=== PATIENT | male | born 1940 | race African-American/Black ===

== ENCOUNTER → 2017-01-09 | Outpatient (CLI) | payer OTHER ==
[2017-01-09 16:14] LABS: CREATININE 1.3 mg/dL (0.7-1.3)
== END ==
LOC: CAT 15:45
PROVIDERS: Internal Medicine Pulmonary Disease
DX: R63.4 Abnormal weight loss (principal); R05 Cough

== ENCOUNTER → 2017-01-30 | Outpatient (CLI) | payer OTHER ==
[~2017-01-30] VITALS: Ht 175.3 cm; Wt 74.8 kg
[~2017-01-30] MED LIST: ACIDOPHILUS100 M1 PO; FLAX OIL1000 MG PO; GINKGO BILOBA500 MG PO; LEFLUNOMIDE20 MG PO; MULTIVITAMINS1 EAC7 PO; PREDNISONE 2.52.5 MG PO; VITAMINC500 PO
--- NOTE | ~2017-01-30 | P ---
[facility] [place] [address] PROCEDURE REPORT Name: MARIELY HOGUE Room #: REG [facility]#: [id number] Admission: 01/30/17 Attend Phys: Truman Mccoy MD Discharge: Date of : 38 Report #: [id number] THIS REPORT FOR: //name// CC: Jesus Joaquin MD OUTPATIENT UPPER ENDOSCOPY REPORT BRIEF HISTORY: The patient is a 76-year-old male ongoing evaluation by Dr. Joaquin for cough and weight loss. He had a recent CT of chest, which revealed dilation of the biliary tree with acute tract the gallbladder without obvious stones, radiology suggestive that he may have a nonopacified stone in the bile duct or possibly ampullary tumor. 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 He has also had a cough, but denies typical reflux symptoms. 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 POSTOPERATIVE DIAGNOSIS: Moderate diffuse gastritis. MEDICATIONS: Deep sedation with propofol per anesthesia. SPECIMEN: Biopsies of gastritis for H. pylori. ESTIMATED BLOOD LOSS: 3 mL. PROCEDURE: EGD with biopsy. FINDINGS: Prior to propofol sedation, procedure of upper endoscopy discussed with the patient as well as potential risks and its complications. He indicates he understands and desires to proceed. DESCRIPTION OF PROCEDURE: With the patient in left lateral decubitus position, the Indexi video endoscope was inserted in the cervical esophagus under direct vision without difficulty. Examination of this organ through its entire length revealed normal esophageal mucosa down the squamocolumnar junction. The squamocolumnar junction was well seen. There is no evidence of esophagitis or Vargas esophagus. In addition, a significant hiatus hernia was not seen. Scope was advanced in the stomach, which was examined on end view as well as retroflexed views. There is a moderate diffuse erythematous gastritis. No ulcers, erosions or bleeding lesions were seen. No mass lesions were seen. Upon retroflexion, no mass lesions or hiatus hernia was seen. Examination multiple biopsies were obtained to evaluate for the gastritis. The pylorus, duodenal bulb and postbulbar sweep were inspected. I was able to well visualize the duodenal papilla and also was able to see the minor papilla. Both [address] [address] PROCEDURE REPORT Name: MARIELY HOGUE Room #: REG [facility].#: [id number] Admission: 01/30/17 Attend Phys: Truman Mccoy MD Discharge: Date of : 39 Report #: [id number] structures were completely normal. No mass lesions were seen in the duodenum. At that point, the scope was slowly withdrawn and careful circumferential views confirmed the above findings. The patient tolerated the procedure well. CONDITION OF THE PATIENT UPON DISCHARGE: Following procedure, the patient drowsy, aroused, conversant and was then prepared for colonoscopy. INSTRUCTIONS TO THE PATIENT AND FAMILY AT THE TIME OF DISCHARGE: I do not see any mass lesions in the duodenum that would result in biliary ductal obstruction. Also, I do not see endoscopic evidence of esophagitis to explain his chronic cough and weight loss. Depending on pulmonary workup, could consider possibly of nonerosive reflux disease contributing to cough. In that case, trial of PPI may be helpful, but would defer to Dr. Joaquin following a full pulmonary evaluation. Also discussed with the patient that we did not find the ampullary lesion, consider MRCP for further evaluation of biliary tree. We will obtain LFTs in the office. We will proceed with colonoscopy at this time. <ELECTRONICALLY SIGNED> By: Truman Mccoy MD 02/04/17 1742 0749 1051 Truman Mccoy MD /nt
--- NOTE | ~2017-01-30 | S ---
[facility] [place] [address] SURGICAL PATH RPT PROCEDURE Name: MARIELY HOGUE Room #: REG [facility].#: [id number] Admission: 01/30/17 Date of : 38 Discharge: Report #: [id number] Path Case #: [id number] PATHOLOGY REPORT COLLECTION DATE: 01/30/2017 RECEIVED DATE: 01/31/2017 SUBMITTING PHYS: Dr. Truman Mccoy OTHER PHYS: Dr. Jesus Patel SPECIMEN(S) RECEIVED: A.Random gastric bx B.Proximal transverse colon polyp x 2 C.Mid transverse colon polyp * * * * * * * * * * * * FINAL DIAGNOSIS: A. Stomach, random biopsy: - Chronic superficial gastritis, moderate, with focal acute activity and focal intestinal metaplasia. - Micro-organisms morphologically consistent with Helicobacter pylori present on immunoperoxidase stain. B. Colon, proximal transverse, biopsy: - Adenomatous polyps, four fragments. C. Colon, mid transverse, biopsy: - Adenomatous polyps, two fragments. PATHOLOGIST: Jana Hull M.D. REPORT ELECTRONICALLY SIGNED BY: Jana Hull M.D. DATE/TIME: 02/03/2017 12:29 * * * * * * * * * * * * GROSS PATHOLOGY: A. Received in formalin labeled "Mariely Hogue, random gastric BX," are 5 segments of hudson soft tissue measuring 1.6 x 0.2 x 0.2 cm in aggregate dimensions and ranging from 0.1 to 0.6 cm in maximum dimension. The specimen is submitted entirely in cassette A1. B. Received in formalin labeled "Mariely Hogue, proximal transverse colon polyp," are 4 segments of hudson soft tissue measuring 1.4 x 0.2 x 0.2 cm in aggregate dimensions and ranging from 0.2 to 0.4 cm in maximum dimension. The specimen is submitted entirely in cassette B1. C. Received in formalin labeled "Mariely Hogue, mid transverse colon polyp," are 2 segments of hudson soft tissue measuring 0.5 x 0.2 x 0.2 cm in aggregate dimensions and ranging from 0.2 to 0.3 cm in maximum dimension. The specimen is submitted entirely in cassette C1. ([facility]; 01/31/2017) [address] [place] [address] SURGICAL PATH RPT PROCEDURE Name: MARIELY HOGUE Room #: [facility].#: [id number] Admission: 01/30/17 Date of : 39 Discharge: Report #: [id number] Path Case #: [id number] CLINICAL HISTORY: Change in bowel habits INITIAL CPT CODE(S): A; 61454, 25114 B; 47248 C; 11409 Professional services performed by [facility] at [place] [address], [place] [address] Technical services performed by [facility] at [address] [place] [address], [facility] [address] [address]. [facility] [address] [place] [address] PHONE: [phone] DIRECTOR: Amor Torres M.D. * * * END OF REPORT * * *
--- NOTE | ~2017-01-30 | P ---
[facility] [place] [address] PROCEDURE REPORT Name: MARIELY HOGUE Room #: REG [facility]#: [id number] Admission: 01/30/17 Attend Phys: Truman Mccoy MD Discharge: Date of : 39 Report #: [id number] THIS REPORT FOR: //name// CC: Jesus Joaquin MD OUTPATIENT COLONOSCOPY BRIEF HISTORY: The patient is a 76-year-old male with recent onset of episodic rectal bleeding. Last colonoscopy was more than 10 years ago. He has also had increased stool frequency up to 3 per day. PREOPERATIVE DIAGNOSIS: Rectal bleeding and modification and change of bowel habits. POSTOPERATIVE DIAGNOSES: 1. Multiple colon polyps. 2. Diverticulosis coli, right and left colon. 3. Small internal hemorrhoids. MEDICATIONS: Deep sedation with propofol per anesthesia. SPECIMEN: 1. Polyps times 2, proximal ascending colon. 2. Mid ascending colon polyp. ESTIMATED BLOOD LOSS: 3 mL. PROCEDURE: Colonoscopy to cecum and terminal ileum with biopsy. FINDINGS: Prior to propofol sedation, procedure of colonoscopy discussed with the patient as well as potential risks and its complications. He indicates he understands and desires to proceed. DESCRIPTION OF PROCEDURE: The patient was placed in left lateral decubitus position, digital examination was completed, which revealed no abnormalities. Subsequently, the Queryday video colonoscope was introduced into the rectum, advanced under direct vision to the cecum. Done with minimal difficulty. The cecum was identified by the ileocecal valve and the appendiceal orifice. I was able to visualize the distal segment of terminal ileum, which was inspected and noted to be unremarkable. At that point, the scope was slowly withdrawn and careful circumferential views obtained. Upon slow withdrawal of the scope, the prep was noted to be excellent. The mucosa was within normal limits, normal vascular pattern, normal light reflex. As we withdrew the scope, he was noted to have diverticular disease in the ascending colon and most hepatic [address] [address] PROCEDURE REPORT Name: MARIELY HOGUE Room #: REG [facility].#: [id number] Admission: 01/30/17 Attend Phys: Truman Mccoy MD Discharge: Date of : 39 Report #: [id number] flexure. However, there is no endoscopic evidence of diverticulitis. As we withdrew the scope, 2 diminutive polyps were seen and removed by biopsy from the proximal transverse colon. In the mid transverse colon, another diminutive polyp was seen and removed by biopsy. As we withdrew the scope, no additional polyps were seen. He was noted to have moderately severe diverticular disease of the sigmoid colon without endoscopic evidence of diverticulitis. The scope was withdrawn in the rectum. Upon retroflexion, small hemorrhoids were seen. Scope was withdrawn. The patient tolerated the procedure well. CONDITION OF THE PATIENT UPON DISCHARGE: Following procedure, the patient drowsy, aroused, conversant and will be discharged home when fully ambulatory. INSTRUCTIONS TO THE PATIENT AND FAMILY AT THE TIME OF DISCHARGE: The patient has had intermittent rectal bleeding . Bleeding likely resolves his hemorrhoids. We will follow up on the pathology of the polyps. If all 3 are adenomas, suggest return in 3 years, if 2 or less are adenomas, routine surveillance colonoscopy may be of minimal benefit to this patient. He may use Anusol suppositories or similar for hemorrhoids, suggest high fiber diet. He should return to the care of Dr. Harvey Joaquin and Dr. Jesus Patel. Last colonoscopy was more than 10 years ago. Withdrawal time from the cecum was 16 minutes. <ELECTRONICALLY SIGNED> By: Truman Mccoy MD 02/04/17 1742 0820 1157 Truman Mccoy MD /nt
== END ==
LOC: GI 05:53
DX: D12.3 Benign neoplasm of transverse colon (principal); K22.70 Barrett's esophagus without dysplasia; K29.30 Chronic superficial gastritis without bleeding; K57.30 Diverticulosis of large intestine without perforation or abscess without bleeding; K64.8 Other hemorrhoids; G47.33 Obstructive sleep apnea (adult) (pediatric); M06.9 Rheumatoid arthritis, unspecified
CPT/HCPCS: 62110; 62900

== ENCOUNTER → 2017-02-07 | Outpatient (CLI) | payer OTHER | LOC: MRI 09:25 | DX: R93.5 Abnormal findings on diagnostic imaging of other abdominal regions, including retroperitoneum (principal) ==

== ENCOUNTER 2017-11-06 15:54 | Inpatient (IN) | payer OTHER ==
[~2017-11-06] VITALS: Ht 175.3 cm; Wt 77.5 kg
--- NOTE | ~2017-11-06 | D ---
[facility] [place] [address] DISCHARGE SUMMARY Name: MARIELY HOGUE Room #: 435-P [facility] IN M.R.#: [id number] Admission: 11/06/17 Attend Phys: Flaco Hubbard MD Discharge: 11/08/17 Date of : 39 Report #: [id number] THIS REPORT FOR: //name// CC: Jesus Hubbard DATE OF SERVICE: 11/08/2017 ATTENDING PHYSICIAN: Dr. Hubbard. CONSULTING PHYSICIANS: Dr. Ramirez and Dr. Whitt. DISCHARGE DIAGNOSES: 1. Left inguinal hernia. 2. Abdominal pain, resolved. DISPOSITION: Home. FOLLOWUP: Follow up with Dr. Whitt in 1-2 weeks. DISCHARGE MEDICATIONS: Please see medication reconciliation form. HOSPITAL COURSE: The patient is a 77-year-old male who presented with left groin pain associated with left inguinal hernia and small bowel incarcerated. The patient was seen by surgeons Dr. Whitt and Dr. Ramirez. He had a bulge in his left groin area. Apparently, on 11/07/2017, bulge appeared to be resolved. A repeat ultrasound of the left groin showed no incarcerated loop of small bowel or intra-abdominal tissue. The patient was tolerating clear liquid diet and diet was advanced. The patient was seen and examined on 11/08/2017. He has no complaints, denies any pain in the abdomen, no left groin pain. He was seen by Dr. Ramirez today who felt that if the patient tolerates diet, he can be discharged with followup with Dr. Whitt. PHYSICAL EXAMINATION: VITAL SIGNS: Temperature is 36.5, pulse is 61, respirations 17, blood pressure 134/82. HEENT: Head normocephalic. Oral mucosa pink, moist. NECK: Supple. LUNGS: Showed clear breath sounds. HEART: S1, S2 normal. Rhythm is regular. ABDOMEN: Soft, nontender. Bowel sounds normoactive. There is no bulging in the left inguinal area. EXTREMITIES: Showed no edema. NEUROLOGIC: No motor or sensory deficit. LABORATORY DATA: White blood cell count 5.8. Sodium 142, potassium 3.9, BUN [facility] [address] [place] [address] DISCHARGE SUMMARY Name: MARIELY HOGUE Room #: 435-P [facility] IN M.R.#: [id number] Admission: 11/06/17 Attend Phys: Flaco Hubbard MD Discharge: 11/08/17 Date of : 38 Report #: [id number], creatinine 0.9. DISPOSITION: The patient tolerated regular diet well. He will be discharging home with followup with Dr. Whitt in 2 weeks. CONDITION ON DISCHARGE: Stable and improved. I spent approximately 35 minutes in preparation for discharge. <ELECTRONICALLY SIGNED> By: Trupti Ruffin MD 12/07/17 1526 1936 50 MD melvi Calvin
--- NOTE | ~2017-11-06 | EKG ---
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
[2017-11-06 17:00] VITALS: BP 122/82
[2017-11-06 17:20] LABS: ABSOLUTE NEUTROPHILS 6.5 thou/uL (1.4-8.2); BASOPHILS 0.4 % (0.0-2.0); EOSINOPHILS 0.4 % (0.0-3.0); HEMATOCRIT 37.9 % (42.0-52.0); LYMPHOCYTES 7.3 % (24.0-44.0); MCH 30.9 pg (26.0-34.0); MCHC 34.4 g/dL (28.0-37.0); MCV 89.9 fL (80.0-100.0); MONOCYTES 8.4 % (1.0-8.0); PLATELET COUNT 183 thou/uL (150-400); POLYS 83.5 % (36.0-66.0); RBC 4.22 mil/uL (4.50-6.00); RDW 13.4 % (10.5-14.5); WBC 7.8 thou/uL (4.0-11.0)
[2017-11-06 17:28] LABS: CALCIUM 9.2 mg/dL (8.5-10.1); CREATININE 1.1 mg/dL (0.7-1.3)
[2017-11-06 17:33] LABS: ALBUMIN 3.6 g/dL (3.4-5.0); TOTAL BILIRUBIN 0.4 mg/dL (<0.1-1.0); TOTAL PROTEIN 7.4 g/dL (6.4-8.2)
[2017-11-06 17:54] LABS: URINE BILIRUBIN NEGATIVE (Negative); URINE BLOOD TRACE (Negative); URINE CLARITY CLEAR; URINE COLOR YELLOW; URINE GLUCOSE-RANDOM* NEGATIVE (Negative); URINE KETONES NEGATIVE (Negative); URINE LEUKOCYTES NEGATIVE (Negative); URINE NITRITE NEGATIVE (Negative); URINE PROTEIN (DIPSTICK) TRACE (Negative); URINE SPECIFIC GRAVITY 1.025 (1.005-1.035); URINE UROBILINOGEN 0.2 E.U./dl (0.2-1.0)
[2017-11-06 18:59] VITALS: BP 124/82
[2017-11-06 21:47] VITALS: BP 130/82
[2017-11-07 03:26] VITALS: BP 108/65
[2017-11-07 04:00] LABS: HEMATOCRIT 33.1 % (42.0-52.0); HEMOGLOBIN 11.4 gm/dL (14.0-18.0); MCH 30.9 pg (26.0-34.0); MCHC 34.3 g/dL (28.0-37.0); MCV 90.2 fL (80.0-100.0); PLATELET COUNT 166 thou/uL (150-400); RBC 3.67 mil/uL (4.50-6.00); RDW 13.4 % (10.5-14.5); WBC 5.8 thou/uL (4.0-11.0)
[2017-11-07 04:01] LABS: CALCIUM 8.3 mg/dL (8.5-10.1); CREATININE 0.9 mg/dL (0.7-1.3); POTASSIUM 3.9 mmol/L (3.5-5.1)
[2017-11-07] MEDS ORDERED: ARAVA20 MG PO (06:30)
[2017-11-07] MEDS ORDERED: ASPIRIN325 PO (06:31)
[2017-11-07 07:11] LABS: ABSOLUTE NEUTROPHILS 1.7 thou/uL (1.4-8.2)
[2017-11-07 07:12] LABS: BURR CELLS OCCASIONAL
[2017-11-07 08:00] VITALS: BP 131/87
[2017-11-07 16:00] VITALS: BP 122/88
[2017-11-08 03:59] VITALS: BP 146/80
[2017-11-08 07:26] VITALS: BP 134/82
[2017-11-08 12:36] VITALS: BP 134/82
[2017-11-08 15:55] VITALS: BP 141/97
[2017-11-08 16:16] VITALS: BP 134/82
== END 2017-11-08 17:04 | disposition home or self-care (01) | DRG 393 ==
LOC: ER 15:54 → 4S 18:14 → EROBS 18:14 → 4S 21:40
PROVIDERS: Emergency Medicine; Physician Assistant; Surgery
DX: K40.30 Unilateral inguinal hernia, with obstruction, without gangrene, not specified as recurrent (principal); E43 Unspecified severe protein-calorie malnutrition; M06.9 Rheumatoid arthritis, unspecified; Z96.611 Presence of right artificial shoulder joint; K57.30 Diverticulosis of large intestine without perforation or abscess without bleeding; Z60.2 Problems related to living alone; Z23 Encounter for immunization; Z86.010 Personal history of colon polyps
CPT/HCPCS: 10195